=== PATIENT | female | born 2000 | race Caucasian/White ===

== ENCOUNTER 2022-02-18 17:53 | Emergency (ER) | payer OTHER ==
[2022-02-18 18:14] VITALS: BP 102/55; PULSE 84; RESP 18; TEMP 98; BMI 23.8
[2022-02-18] MEDS ORDERED: IBUPROFEN 600 MG TABLET (FP) PO ONE ×2 (18:34→19:49)
== END 2022-02-18 20:16 | disposition home or self-care (01) ==
LOC: JERFT 17:53
DX: R07.9 Chest pain, unspecified (principal)
CPT/HCPCS: 71046-TC-FY; 84703; 93005; 93010; 99284-25

== ENCOUNTER 2022-09-23 00:42 | Inpatient (IN) | payer OTHER ==
[2022-09-23 00:58] VITALS: BMI 21.9
[2022-09-23 02:17] LABS: EOS % 0.2 % (0-4.5); HEMOGLOBIN 13.1 GM/dL (10.7-15.3); LYMPH % 38.2 % (8-40); MCH 29.5 pg (25.7-33.7); MCHC 33.6 g/dl (32.0-36.0); MEAN CELL VOLUME 87.8 fl (80-96); MEAN PLT VOLUME 8.3 fl (7.5-11.1); MONO % 7.4 % (3.8-10.2); NEUT % 53.2 % (42.8-82.8); PLATELET COUNT 266 10^3/uL (134-434); RBC 4.44 M/mm3 (3.60-5.2); RDW 14.3 % (11.6-15.6)
[2022-09-23 02:37] LABS: CHLORIDE 98 mmol/L (98-107)
[2022-09-23 02:39] LABS: ALBUMIN 3.4 g/dl (3.4-5.0); CALCIUM 8.4 mg/dL (8.5-10.1)
[2022-09-23 02:40] LABS: BLOOD UREA NITROGEN 9.5 mg/dL (7-18); GLUCOSE,RANDOM 79 mg/dL (74-106)
[2022-09-23 02:43] LABS: CREATININE 0.8 mg/dL (0.55-1.3)
[2022-09-23 02:44] LABS: TOT PROT 11.9 g/dl (6.4-8.2)
[2022-09-23 02:58] LABS: EPI CELLS 13 /uL (0-25.1); HYALINE CASTS 0 /uL (0-3.1); PH,URINE 6.5 (5.0-8.0); URINE APPEARANCE CLEAR; URINE BACTERIA 38 /uL (0-1359); URINE BILIRUBIN NEGATIVE (NEGATIVE); URINE COLOR YELLOW; URINE GLUCOSE (UA) NEGATIVE (NEGATIVE); URINE KETONE NEGATIVE (NEGATIVE); URINE LEUK ESTERASE TRACE (NEGATIVE); URINE NITRITE NEGATIVE (NEGATIVE); URINE PROTEIN NEGATIVE (NEGATIVE); URINE RBC 5 /uL (0-23.9); URINE UROBILINOGEN 0.2 mg/dL (0.2-1.0); URINE WBC 9 /uL (0-25.8)
[2022-09-23 02:59] LABS: HCG,QUALITATIVE URINE Negative
[2022-09-23 03:59] LABS: SODIUM 106 mmol/L (136-145)
[2022-09-23] MEDS ORDERED: WATER IVPB ONE ×6 (04:07→09:30)
[2022-09-23] MEDS ORDERED: ACETYLCYSTEINE IVPB ONE ×6 (04:07→09:30)
[2022-09-23] MEDS ORDERED: DEXTROSE 5% IVPB ONE ×6 (04:07→09:30)
[2022-09-23 04:38] LABS: BASO % 0.9 % (0-2.0); EOS % 0.2 % (0-4.5); HEMOGLOBIN 12.7 GM/dL (10.7-15.3); LYMPH % 33.5 % (8-40); MCH 28.6 pg (25.7-33.7); MCHC 33.3 g/dl (32.0-36.0); MEAN CELL VOLUME 85.7 fl (80-96); NEUT % 58.4 % (42.8-82.8); PLATELET COUNT 238 10^3/uL (134-434); RBC 4.44 M/mm3 (3.60-5.2); RDW 13.5 % (11.6-15.6); WHITE BLOOD COUNT 5.5 K/mm3 (4.0-10.0)
[2022-09-23 04:39] LABS: INR 1.24 (0.83-1.09); PROTHROMBIN TIME (PATIENT) 14.3 SEC (9.7-13.0)
[2022-09-23 04:42] LABS: ACTIVATED PTT 31.1 SECONDS (25.2-36.5)
[2022-09-23 04:43] LABS: CALCIUM 8.7 mg/dL (8.5-10.1)
[2022-09-23 04:44] LABS: ALBUMIN 3.9 g/dl (3.4-5.0); BLOOD UREA NITROGEN 8.7 mg/dL (7-18)
[2022-09-23 04:47] LABS: CREATININE 0.8 mg/dL (0.55-1.3)
[2022-09-23 04:49] LABS: BILIRUBIN,TOTAL 0.6 mg/dL (0.2-1)
[2022-09-23 04:51] LABS: TOT PROT 7.8 g/dl (6.4-8.2)
[2022-09-23] MEDS ORDERED: ONDANSETRON 4 MG/2 ML VIAL IVPUSH ONE (05:04)
[2022-09-23] MEDS ORDERED: ONDANSETRON 4 MG/2 ML VIAL IVPUSH PRN (05:12)
[2022-09-23 06:44] LABS: ARTERIAL BLD GAS O2 SATURATION 99.5 % (95-98); ARTERIAL BLOOD GAS BASE EXCESS -1.9 mmol/L (-2-2); ARTERIAL BLOOD GAS PO2 178.9 mmHg (80-100)
[2022-09-23 06:46] LABS: ALLENS TEST POSITIVE
[2022-09-23 07:31] LABS: MAGNESIUM 1.9 mg/dL (1.8-2.4)
[2022-09-23 07:34] LABS: PHOSPHOROUS 3.6 mg/dL (2.5-4.9)
[2022-09-23] MEDS ORDERED: ENOXAPARIN NA (PORCINE) 40 MG/0.4 ML DISP.SYRIN SQ ONE (09:32)
[2022-09-23] MEDS: ENOXAPARIN NA (PORCINE) 40 MG/0.4 ML DISP.SYRIN SQ SCH (10:45)
[2022-09-23 16:15] LABS: INR 1.51 (0.83-1.09); PROTHROMBIN TIME (PATIENT) 17.4 SEC (9.7-13.0)
[2022-09-23 16:30] LABS: CALCIUM 9.2 mg/dL (8.5-10.1)
[2022-09-23 16:31] LABS: ALBUMIN 3.6 g/dl (3.4-5.0); BLOOD UREA NITROGEN 6.6 mg/dL (7-18)
[2022-09-23 16:34] LABS: CREATININE 0.7 mg/dL (0.55-1.3)
[2022-09-23 16:35] LABS: BILIRUBIN,TOTAL 0.7 mg/dL (0.2-1)
[2022-09-23 16:36] LABS: TOT PROT 7.5 g/dl (6.4-8.2)
[2022-09-24 07:05] VITALS: RESP 18
[2022-09-24 08:06] LABS: BENZODIAZEPINES, UR Negative ng/mL (Cutoff=200); CANNABINOIDS, URINE Negative ng/mL (Cutoff=20); METHADONE, URINE Negative ng/mL (Cutoff=300); OPIATES, UR Negative ng/mL (Cutoff=300); PHENCYCLIDINE, URINE Negative ng/mL (Cutoff=25)
[2022-09-24 08:50] LABS: BASO % 0.6 % (0-2.0); EOS % 0.4 % (0-4.5); HEMATOCRIT 35.7 % (32.4-45.2); LYMPH % 39.3 % (8-40); MCH 29.5 pg (25.7-33.7); MCHC 33.7 g/dl (32.0-36.0); MEAN CELL VOLUME 87.5 fl (80-96); MEAN PLT VOLUME 8.4 fl (7.5-11.1); MONO % 9.5 % (3.8-10.2); NEUT % 50.2 % (42.8-82.8); PLATELET COUNT 225 10^3/uL (134-434); RBC 4.07 M/mm3 (3.60-5.2); RDW 13.2 % (11.6-15.6); WHITE BLOOD COUNT 4.9 K/mm3 (4.0-10.0)
[2022-09-24 09:03] LABS: CALCIUM 8.9 mg/dL (8.5-10.1)
[2022-09-24 09:04] LABS: ALBUMIN 3.5 g/dl (3.4-5.0); BLOOD UREA NITROGEN 6.8 mg/dL (7-18)
[2022-09-24 09:07] LABS: CREATININE 0.6 mg/dL (0.55-1.3); PHOSPHOROUS 3.4 mg/dL (2.5-4.9)
[2022-09-24 09:08] LABS: BILIRUBIN,TOTAL 0.8 mg/dL (0.2-1); TOT PROT 7.1 g/dl (6.4-8.2)
[2022-09-24 09:20] LABS: INR 1.45 (0.83-1.09); PROTHROMBIN TIME (PATIENT) 16.8 SEC (9.7-13.0)
[2022-09-24 09:21] LABS: ACTIVATED PTT 31.5 SECONDS (25.2-36.5)
[2022-09-24] MEDS: ENOXAPARIN NA (PORCINE) 40 MG/0.4 ML DISP.SYRIN SQ SCH (09:51)
[2022-09-24 10:11] LABS: BILIRUBIN,DIRECT 0.2 mg/dL (0.0-0.2)
[2022-09-24 14:45] VITALS: BP 102/61; PULSE 68; TEMP 98.2
== END 2022-09-24 15:05 | disposition home or self-care (01) | DRG 812 ==
LOC: JER 00:42 → JERBED 04:12 → J6S 17:17
PROVIDERS: ADMIT Internal Medicine; ATTEND Internal Medicine
DX: T39.1X2A Poisoning by 4-Aminophenol derivatives, intentional self-harm, initial encounter (principal); F41.8 Other specified anxiety disorders; R45.851 Suicidal ideations; R00.1 Bradycardia, unspecified; Y92.098 Other place in other non-institutional residence as the place of occurrence of the external cause
CPT/HCPCS: 0241U-QW; 36415; 36600; 80048; 80053; 80076; 80307; 81003; 82803; 82962; 83735; 84100; 84439; 84443; 84703; 85025; 85610; 85730; 86850; 86900; 86901; 93005; 93010; 99285-25

== ENCOUNTER 2023-12-31 02:49 | Emergency (ER) | payer OTHER ==
[2023-12-31 02:55] VITALS: BP 133/87; PULSE 83; RESP 18; TEMP 98.5; BMI 21.9
[2023-12-31] MEDS ORDERED: IBUPROFEN 600 MG TABLET (FP) PO ONE (03:46)
[2023-12-31] MEDS: IBUPROFEN 600 MG TABLET (FP) PO ONE (03:49)
[2023-12-31] MEDS ORDERED: NEOMYCIN/POLYMYXN/HC OTIC SUSPENSION 10 ML BOTTLE AD ONE (03:55)
[2023-12-31] MEDS ORDERED: AMOX TR/POT CLAV 875MG/125MG TABLETS (FP) ONE (03:56)
[2023-12-31] MEDS: AMOXICILLIN 250 MG CAPSULE PO ONE (04:38)
[2023-12-31] MEDS: NEOMYCIN/POLYMYXN/HC OTIC SOLUTION 10 ML BOTTLE AD ONE (04:39)
== END 2023-12-31 04:41 | disposition home or self-care (01) ==
LOC: JER 02:49
DX: H66.92 Otitis media, unspecified, left ear (principal); H92.02 Otalgia, left ear
CPT/HCPCS: 99283-25

== ENCOUNTER 2024-02-29 14:38 | Emergency (ER) | payer OTHER ==
[2024-02-29] MEDS ORDERED: ONDANSETRON 4 MG/2 ML VIAL ONE (15:29)
[2024-02-29] MEDS ORDERED: ACETAMINOPHEN INJECTION 100 ML IVPB ONE (15:29)
[2024-02-29 15:38] VITALS: BMI 22.8
[2024-02-29] MEDS: SODIUM CHLORIDE 0.9% 500 ML INFUS.BAG IV ONE (15:40)
[2024-02-29] MEDS: ACETAMINOPHEN 1000 MG/100 ML BAG IVPB ONE (15:40)
[2024-02-29] MEDS: ONDANSETRON 4 MG/2 ML VIAL IVPUSH ONE (15:45)
[2024-02-29 16:02] LABS: BASO % 0.7 % (0-2.0); EOS % 0.4 % (0-4.5); HEMATOCRIT 40.6 % (32.4-45.2); HEMOGLOBIN 13.7 GM/dL (10.7-15.3); LYMPH % 27.2 % (8-40); MCH 29.7 pg (25.7-33.7); MCHC 33.7 g/dl (32.0-36.0); MEAN CELL VOLUME 88.3 fl (80-96); MONO % 7.8 % (3.8-10.2); NEUT % 63.9 % (42.8-82.8); PLATELET COUNT 232 10^3/uL (134-434); RDW 13.7 % (11.6-15.6); WHITE BLOOD COUNT 6.8 K/mm3 (4.0-10.0)
[2024-02-29 16:21] LABS: POTASSIUM 3.7 mmol/L (3.5-5.1)
[2024-02-29 16:24] LABS: BLOOD UREA NITROGEN 10.6 mg/dL (7-18); MAGNESIUM 2.1 mg/dL (1.8-2.4)
[2024-02-29 16:27] LABS: CREATININE 0.7 mg/dL (0.55-1.3)
[2024-02-29 16:28] LABS: BILIRUBIN,TOTAL 0.7 mg/dL (0.2-1); TOT PROT 7.9 g/dl (6.4-8.2)
[2024-02-29 17:09] LABS: PH,URINE 7.5 (5.0-8.0); URINE APPEARANCE CLOUDY; URINE BILIRUBIN NEGATIVE (NEGATIVE); URINE COLOR YELLOW; URINE GLUCOSE (UA) NEGATIVE (NEGATIVE); URINE KETONE 1+ (NEGATIVE); URINE LEUK ESTERASE NEGATIVE (NEGATIVE); URINE NITRITE NEGATIVE (NEGATIVE); URINE PROTEIN NEGATIVE (NEGATIVE); URINE UROBILINOGEN 0.2 mg/dL (0.2-1.0)
[2024-02-29 18:20] VITALS: TEMP 97.7
[2024-02-29 18:33] VITALS: BP 97/48; PULSE 58; RESP 18
== END 2024-02-29 18:36 | disposition home or self-care (01) ==
LOC: JER 14:38
PROC: 3E033NZ Introduction of Analgesics, Hypnotics, Sedatives into Peripheral Vein, Percutaneous Approach (ICD-10-PCS; principal; 2024-02-29)
PROC: 3E033GC Introduction of Other Therapeutic Substance into Peripheral Vein, Percutaneous Approach (ICD-10-PCS; 2024-02-29)
DX: S09.90XA Unspecified injury of head, initial encounter (principal); R42 Dizziness and giddiness; R11.0 Nausea; W01.198A Fall on same level from slipping, tripping and stumbling with subsequent striking against other object, initial encounter
CPT/HCPCS: 36415; 70450-TC; 80053; 81003; 82962; 83735; 84439; 84443; 84703; 85025; 87086; 93005; 93010; 99285-25; J0131